=== PATIENT | female | born 1970 | race Caucasian/White ===

== ENCOUNTER → 2019-09-19 15:01 | Outpatient (BNVA) | payer SELFPAY | PROVIDERS: Family Provider Nurse Practitioner Family; PCP Nurse Practitioner Family; Visit Provider Nurse Practitioner Family | DX: J10.1 Influenza due to other identified influenza virus with other respiratory manifestations (principal); R68.89 Other general symptoms and signs | CPT/HCPCS: 87804 ==

== ENCOUNTER 2024-11-10 09:10 | Emergency (ER) | payer BC, SELFPAY ==
[2024-11-10] VITALS (7 sets, daily range): BP systolic 142–182; BP diastolic 86–100; PULSE 82–116; RESP 12–24; TEMP 36.8; O2SAT 90–98; BMI 38.9
--- NOTE | 2024-11-10 09:22 | CT_ITS ---
WS: [id number] CT HEAD NONCONTRAST HISTORY: acute onset GAXIOLA TECHNIQUE: Contiguous axial imaging performed through the brain. Bone and soft tissue windows. Sagittal and coronal reformats reviewed. All CT scans at [facility] use at least one of these dose optimization techniques: automated exposure control; mA and/or kV adjustment per patient size (includes targeted exams where dose is matched to clinical indication); or iterative reconstruction. DLP: 1192.18 mGy.cm COMPARISON: None available. No acute intracranial hemorrhage, midline shift or mass effect. No atrophy or prior infarcts or herniation. Ventricles: Normal size with no hydrocephalus. Paranasal sinuses: Prior functional sinus surgery. No air-fluid levels within the sinuses. Mastoid air cells: Well pneumatized. Calvarium and scalp: Skull is intact with no soft tissue edema or swelling. CT/CT head wo con* [id number] IMPRESSION: Negative head CT.
--- NOTE | 2024-11-10 09:23 | W.ED.HA ---
Documented by User: FAM Rod 11/10/24 12:41 HPI - Headache General: Chief Complaint: Headache Stated Complaint: stroke like symptoms Time Seen by Provider: 11/10/24 09:21 Source: patient Mode of arrival: wheelchair Limitations: no limitations History of Present Illness: Patient is a 54-year-old female presents to ED today for evaluation of a headache. Patient tells me she was upstairs on MedSurg accompanying her ill mother when she unfortunately . Patient then began to grieve the loss of her mother. She states when she knelt to the ground she developed sudden onset severe headache to the back of her head that she describes as an explosion . Patient states she used to suffer from migraines years ago but has not had a headache in several years. She is describing this pain today is severe. She does arrive understandably anxious and tearful. Blood pressure significantly elevated. She states she does take hypertensive medications in the evening and did take these yesterday evening. She states her blood pressure is normally controlled at home. She is not complaining of any visual changes, vomiting, or neurologic deficits. MD elicited complaint: headache Pertinent past history: hypertension Onset (ago): minute(s) Onset description: suddenly Location: occipital Severity: severe Quality & Timing: other ( explosion ) Exacerbating factors: none Relieving factors: nothing Context: other (significant life stressor; just lost her mother) Associated symptoms: Deny chest pain, confusion, fever(s), lightheadedness, malaise, nausea, pre-syncope, syncope or vomiting Treatments prior to arrival: none Related Data Home Medications ?Medication ?Instructions ?Recorded ?Confirmed acetaminophen 500 mg tablet 1,000 mg PO Q6H PRN Pain 11/10/24 11/10/24 (Tylenol Extra Strength) allopurinol 300 mg tablet 300 mg PO DAILY 11/10/24 11/10/24 ascorbic acid (vitamin C) 1,000 mg 1,000 mg PO DAILY 11/10/24 11/10/24 tablet (Vitamin C) cholecalciferol (vitamin D3) 125 125 mcg PO BEDTIME 11/10/24 11/10/24 mcg (5,000 unit) tablet (Vitamin D3) duloxetine 30 mg capsule,delayed 30 mg PO DAILY 11/10/24 11/10/24 release duloxetine 60 mg capsule,delayed 60 mg PO DAILY 11/10/24 11/10/24 release hydrocodone 7.5 mg-acetaminophen 1 tab PO BID PRN Pain 11/10/24 11/10/24 325 mg tablet ibuprofen 200 mg tablet (Advil) 400 mg PO Q6H PRN Pain 11/10/24 11/10/24 naproxen sodium 220 mg tablet 220 mg PO Q12H PRN Pain 11/10/24 11/10/24 (Aleve) nystatin 100,000 unit/gram topical 1 applic topical BID PRN Skin 11/10/24 11/10/24 powder (Nystop) Irritation omeprazole 20 mg capsule,delayed 20 mg PO DAILY 11/10/24 11/10/24 release potassium chloride 10 mEq 10 meq PO DAILY 11/10/24 11/10/24 tablet,extended release 40-iron fum 27 mg 1 cap PO BEDTIME 11/10/24 11/10/24 iron-folic acid 800 mcg-dha 250 mg capsule trazodone 50 mg tablet 50 - 100 mg PO BEDTIME 11/10/24 11/10/24 valsartan 320 1 tab PO DAILY 11/10/24 11/10/24 mg-hydrochlorothiazide 25 mg tablet zinc gluconate 50 mg tablet 50 mg PO DAILY 11/10/24 11/10/24 zolpidem 10 mg tablet 10 mg PO BEDTIME 11/10/24 11/10/24 Allergies Allergy/AdvReac Type Severity Reaction Status Date / Time methylprednisolone (From Allergy Mild Unknown Verified 10/19/19 10:29 Medrol) metoclopramide (From Reglan) Allergy Mild unknown Verified 10/19/19 10:29 morphine Allergy Mild Unknown Verified 10/19/19 10:29 pramipexole (From Mirapex) Allergy Mild Unknown Verified 10/19/19 10:29 prednisone Allergy Mild Unknown Verified 10/19/19 10:29 sumatriptan (From Imitrex) Allergy Mild Unknown Verified 10/19/19 10:29 Review of Systems Const: Denies: fever(s), chills, body aches, fatigue or malaise Eyes: Denies: change in vision, blurry vision, photophobia, floaters or seeing flashes Card: Denies: chest pain, lightheadedness, syncope or pre-syncope Resp: Denies: dyspnea GI: Denies: nausea or vomiting Musc: Reports: neck pain (chronic) and back pain (chronic) Neuro: Reports: headache(s); Denies: numbness in extremities, weakness in extremities, sensory changes, dizziness, confusion, behavioral changes, Slurred speech present, difficulty communicating thoughts or seizure-like activity Physical Exam Const: COMMON NORMALS: patient oriented x3, no limitations, alert and well nourished GENERAL APPEARANCE: cooperative and anxious (just lost her mother) NUTRITIONAL APPEARANCE: obese ORIENTATION/CONSCIOUSNESS: Yes awake, Yes oriented to person, Yes oriented to place and Yes oriented to time HENMT: COMMON NORMALS: normocephalic and atraumatic HEAD & SCALP: normal to inspection, normocephalic and atraumatic FACE & SINUS: normal facial exam and face symmetric Eye: COMMON NORMALS: Equal, round and reactive pupils present and EOMs intact bilaterally GENERAL EYE: appearance normal, both eyes and all related structures and normal light reflex PUPIL: Yes Equal, round and reactive pupils present DIRECT OPHTHALMOSCOPY: Yes normal light reflex Neck/C-Spine: COMMON NORMALS: full ROM and no meningeal signs GENERAL: Yes normal visual inspection Resp: COMMON NORMALS: normal respiratory effort Cardio: COMMON NORMALS: regular rhythm RATE: tachycardic RHYTHM: regular rhythm Neuro: OLIVIA COMA SCALE: document GCS findings Olivia coma scale eye opening: Spontaneous [place] coma scale verbal response: Orientated Olivia coma scale motor response: Obey commands Olivia coma scale total score: 15 COMMON NORMALS: patient oriented x3, CN's II-XII intact bilaterally, moves all extremities, no focal motor deficits and no sensory deficits noted SENSORIUM/ORIENTATION: Yes alert, Yes oriented to person, Yes oriented to place and Yes oriented to time MENINGEAL SIGNS: Yes no meningeal signs Course Vital Signs: Vital signs: Vital Signs Temperature 98.2 F 11/10/24 09:16 Pulse Rate 82 11/10/24 12:42 Respiratory Rate 21 H 11/10/24 09:55 Blood Pressure 142/86 11/10/24 12:42 Pulse Oximetry 98 11/10/24 12:42 Oxygen Delivery Me thod Room Air 11/10/24 09:45 MDM - Headache Medical Decision Making Patient arrived to the emergency department visibly and understandably distraught over the recent passing of her mother. She was significantly hypertensive with a complaint of a sudden onset severe headache. Workup in the emergency department included blood work, noncontrast head CT, as well as CT imaging of her head and neck. She was given IV medications here and on re-examination she is resting comfortably currently rating her headache at a 1/10 and is ready to go home. She will be allowed discharge with return precautions. Medical Records I reviewed the patient's medical records. Lab Data I reviewed the patient's lab results. 11/10/24 09:11/10/24 09:[address] 11/10/24 09:22 IMPRESSION: Negative head CT. Head/Neck CTA 11/10/24 11:16 IMPRESSION: 1. Normal carotid arteries. 2. No occlusions or aneurysms within the [place]. 3. Absent or hypoplastic LEFT posterior communicating artery, normal variant. 4. Diffusely small caliber RIGHT vertebral artery. Laboratory Results WBC 8.60 10^3/uL (3.29-11.43) 11/10/24 09: RBC 4.85 10^6/uL (3.85-5.65) 11/10/24 09: Hgb 13.90 g/dL (11.27-16.99) 11/10/24 09: Hct 41.7 % (36-47) 11/10/24: MCV 86.0 fl (85-98) 11/10/24: MCH 28.7 pg (27-33) 11/10/24: MCHC 33.3 g/dL (30-55) 11/10/24: RDW 14.3 % (12.1-15.1) 11/10/24: Plt Count 283 10^3/cmm (157-399) 11/10/24: MPV 10.4 fL (7.4-10.4) 11/10/24 09: Neut % (Auto) 55.4 % 11/10/24: Lymph % (Auto) 33.8 % 11/10/24 09: [place] % (Auto) 6.3 % 11/10/24: Eos % (Auto) 3.6 % 11/10/24 09:25 Baso % (Auto) 0.7 % 11/10/24: Neut # (Auto) 4.76 10^3/uL (1.8-7.7) 11/10/24 09:25 Lymph # (Auto) 2.9 10^3/uL (0.8-4.8) 11/10/24 09:25 [place] # (Auto) 0.5 10^3/uL (0.2-0.9) 11/10/24 09:25 Eos # (Auto) 0.3 10^3/uL (0.0-0.8) 11/10/24 09:25 Baso # (Auto) 0.1 10^3/uL (0.0-0.1) 11/10/24 09:25 Nucleated RBC % (auto) 0 % 11/10/24: Nucleated RBCs # 0.0 /100WBC 11/10/24 09:25 Sodium 141 mmol/L (136-145) 11/10/24 09:25 Potassium 3.6 mmol/L (3.5-5.1) 11/10/24 09: Chloride 100 mmol/L (98-107) 11/10/24 09: Carbon Dioxide 28 mmol/L (22-29) 11/10/24 09:25 Anion Gap 16.6 (5-19) 11/10/24 09:25 BUN 18 mg/dL (6-20) 11/10/24 09:25 Creatinine 0.8 mg/dL (0.5-0.9) 11/10/24 09:25 GFR Calculation 74.7 mL/min (90-130) L 11/10/24 09:25 Glucose 138 mg/dL (65-115) H 11/10/24 09:25 Calculated Osmolality 296 mOsm/kg (285-295) H 11/10/24 09:25 Calcium 10.0 mg/dL (8.5-10.5) 11/10/24 09:25 Total Bilirubin 0.3 mg/dL (0.15-1.2) 11/10/24 09:25 AST 23 U/L (0-32) 11/10/24 09:25 ALT 24 U/L (0-33) 11/10/24 09:25 Alkaline Phosphatase 101 U/L (35-105) 11/10/24 09:25 Total Protein 7.3 g/dL (6.6-8.7) 11/10/24 09:25 Albumin 4.8 g/dL (3.5-5.2) 11/10/24 09:25 Globulin 2.5 g/dL (1.3-4.6) 11/10/24 09:25 All radiology interpretation(s) finalized by discharge Discharge Plan Discharge Patient Disposition: Home Clinical Impression: Grief reaction Headache Qualifiers: Headache type: unspecified Headache chronicity pattern: acute headache Intractability: not intractable Qualified Code(s): R51.9 - Headache, unspecified Condition: Stable Prescriptions: No Action ascorbic acid (vitamin C) [Vitamin C] 1,000 mg Tablet 1,000 mg PO DAILY trazodone 50 mg tablet 50 - 100 mg PO BEDTIME potassium chloride 10 mEq tablet extended release 10 meq PO DAILY hydrocodone-acetaminophen 7.5-325 mg tablet 1 tab PO BID PRN (Reason: Pain) omeprazole 20 mg capsule,delayed release(DR/EC) 20 mg PO DAILY zinc gluconate 50 mg Tablet 50 mg PO DAILY allopurinol 300 mg tablet 300 mg PO DAILY nystatin [Nystop] 100,000 unit/gram powder 1 applic TOPICAL BID PRN (Reason: Skin Irritation) zolpidem 10 mg tablet 10 mg PO BEDTIME duloxetine 30 mg capsule,delayed release(DR/EC) 30 mg PO DAILY duloxetine 60 mg capsule,delayed release(DR/EC) 60 mg PO DAILY valsartan-hydrochlorothiazide 320-25 mg tablet 1 tab PO DAILY cholecalciferol (vitamin D3) [Vitamin D3] 125 mcg (5,000 unit) Tablet 125 mcg PO BEDTIME Multi-DHA 27mg iron- 800 mcg-250 mg Capsule 1 cap PO BEDTIME acetaminophen [Tylenol Extra Strength] 500 mg Tablet 1,000 mg PO Q6H PRN (Reason: Pain) naproxen sodium [Aleve] 220 mg Tablet 220 mg PO Q12H PRN (Reason: Pain) ibuprofen [Advil] 200 mg Tablet 400 mg PO Q6H PRN (Reason: Pain) Discharge Orders: Discharge ED (Routine); Ordered 11/10/24 Ordered By: Samia Cohen Activity Restrictions/Additional Instructions: I offer my condolences to you and your family regarding the passing of your mother. As we discussed, your CT head as well as CTA imaging of your head/neck were unremarkable here today. You will be allowed discharge from the emergency department to go home and rest and be with your loved ones during this time of sorrow. 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[employer] Room for Carinarussell Maradiaga Documented by User: Saeid Capone DO 11/10/24 13:00 HPI - Headache General: Chief Complaint: Headache Stated Complaint: stroke like symptoms Time Seen by Provider: 11/10/24 09:21 Related Data Home Medications ?Medication ?Instructions ?Recorded ?Confirmed acetaminophen 500 mg tablet 1,000 mg PO Q6H PRN Pain 11/10/24 11/10/24 (Tylenol Extra Strength) allopurinol 300 mg tablet 300 mg PO DAILY 11/10/24 11/10/24 ascorbic acid (vitamin C) 1,000 mg 1,000 mg PO DAILY 11/10/24 11/10/24 tablet (Vitamin C) cholecalciferol (vitamin D3) 125 125 mcg PO BEDTIME 11/10/24 11/10/24 mcg (5,000 unit) tablet (Vitamin D3) duloxetine 30 mg capsule,delayed 30 mg PO DAILY 11/10/24 11/10/24 release duloxetine 60 mg capsule,delayed 60 mg PO DAILY 11/10/24 11/10/24 release hydrocodone 7.5 mg-acetaminophen 1 tab PO BID PRN Pain 11/10/24 11/10/24 325 mg tablet ibuprofen 200 mg tablet (Advil) 400 mg PO Q6H PRN Pain 11/10/24 11/10/24 naproxen sodium 220 mg tablet 220 mg PO Q12H PRN Pain 11/10/24 11/10/24 (Aleve) nystatin 100,000 unit/gram topical 1 applic topical BID PRN Skin 11/10/24 11/10/24 powder (Nystop) Irritation omeprazole 20 mg capsule,delayed 20 mg PO DAILY 11/10/24 11/10/24 release potassium chloride 10 mEq 10 meq PO DAILY 11/10/24 11/10/24 tablet,extended release 40-iron fum 27 mg 1 cap PO BEDTIME 11/10/24 11/10/24 iron-folic acid 800 mcg-dha 250 mg capsule trazodone 50 mg tablet 50 - 100 mg PO BEDTIME 11/10/24 11/10/24 valsartan 320 1 tab PO DAILY 11/10/24 11/10/24 mg-hydrochlorothiazide 25 mg tablet zinc gluconate 50 mg tablet 50 mg PO DAILY 11/10/24 11/10/24 zolpidem 10 mg tablet 10 mg PO BEDTIME 11/10/24 11/10/24 Allergies Allergy/AdvReac Type Severity Reaction Status Date / Time methylprednisolone (From Allergy Mild Unknown Verified 10/19/19 10:29 Medrol) metoclopramide (From Reglan) Allergy Mild unknown Verified 10/19/19 10:29 morphine Allergy Mild Unknown Verified 10/19/19 10:29 pramipexole (From Mirapex) Allergy Mild Unknown Verified 10/19/19 10:29 prednisone Allergy Mild Unknown Verified 10/19/19 10:29 sumatriptan (From Imitrex) Allergy Mild Unknown Verified 10/19/19 10:29 Physical Exam Neuro: OLIVIA COMA SCALE: document GCS findings Olivia coma scale total score: 15 Course Vital Signs: Vital signs: Vital Signs Temperature 98.2 F 11/10/24 09:16 Pulse Rate 82 11/10/24 12:42 Respiratory Rate 21 H 11/10/24 09:55 Blood Pressure 142/86 11/10/24 12:42 Pulse Oximetry 98 11/10/24 12:42 Oxygen Delivery Me thod Room Air 11/10/24 09:45 MDM - Headache Medical Decision Making Patient arrived to the emergency department visibly and understandably distraught over the recent passing of her mother. She was significantly hypertensive with a complaint of a sudden onset severe headache. Workup in the emergency department included blood work, noncontrast head CT, as well as CT imaging of her head and neck. She was given IV medications here and on re-examination she is resting comfortably currently rating her headache at a 1/10 and is ready to go home. She will be allowed discharge with return precautions. Chart reviewed and patient discussed with midlevel. Agree with assessment and plan. Lab Data 11/10/24 09:25 11/10/24 09:[address] 11/10/24 09:22 IMPRESSION: Negative head CT. Head/Neck CTA 11/10/24 11:16 IMPRESSION: 1. Normal carotid arteries. 2. No occlusions or aneurysms within the [place]. 3. Absent or hypoplastic LEFT posterior communicating artery, normal variant. 4. Diffusely small caliber RIGHT vertebral artery. Laboratory Results WBC 8.60 10^3/uL (3.29-11.43) 11/10/24 09: RBC 4.85 10^6/uL (3.85-5.65) 11/10/24 09:25 Hgb 13.90 g/dL (11.27-16.99) 11/10/24: Hct 41.7 % (36-47) 11/10/24: MCV 86.0 fl (85-98) 11/10/24: MCH 28.7 pg (27-33) 11/10/24: MCHC 33.3 g/dL (30-55) 11/10/24: RDW 14.3 % (12.1-15.1) 11/10/24 09: Plt Count 283 10^3/cmm (157-399) 11/10/24: MPV 10.4 fL (7.4-10.4) 11/10/24 09: Neut % (Auto) 55.4 % 11/10/24 09: Lymph % (Auto) 33.8 % 11/10/24 09:25 [place] % (Auto) 6.3 % 11/10/24 09:25 Eos % (Auto) 3.6 % 11/10/24 09:25 Baso % (Auto) 0.7 % 11/10/24: Neut # (Auto) 4.76 10^3/uL (1.8-7.7) 11/10/24 09: Lymph # (Auto) 2.9 10^3/uL (0.8-4.8) 11/10/24 09:25 [place] # (Auto) 0.5 10^3/uL (0.2-0.9) 11/10/24 09:25 Eos # (Auto) 0.3 10^3/uL (0.0-0.8) 11/10/24 09:25 Baso # (Auto) 0.1 10^3/uL (0.0-0.1) 11/10/24 09:25 Nucleated RBC % (auto) 0 % 11/10/24 09:25 Nucleated RBCs # 0.0 /100WBC 11/10/24 09:25 Sodium 141 mmol/L (136-145) 11/10/24 09:25 Potassium 3.6 mmol/L (3.5-5.1) 11/10/24 09:25 Chloride 100 mmol/L (98-107) 11/10/24 09:25 Carbon Dioxide 28 mmol/L (22-29) 11/10/24 09:25 Anion Gap 16.6 (5-19) 11/10/24 09:25 BUN 18 mg/dL (6-20) 11/10/24 09:25 Creatinine 0.8 mg/dL (0.5-0.9) 11/10/24 09:25 GFR Calculation 74.7 mL/min (90-130) L 11/10/24 09:25 Glucose 138 mg/dL (65-115) H 11/10/24 09:25 Calculated Osmolality 296 mOsm/kg (285-295) H 11/10/24 09:25 Calcium 10.0 mg/dL (8.5-10.5) 11/10/24 09:25 Total Bilirubin 0.3 mg/dL (0.15-1.2) 11/10/24 09:25 AST 23 U/L (0-32) 11/10/24 09:25 ALT 24 U/L (0-33) 11/10/24 09:25 Alkaline Phosphatase 101 U/L (35-105) 11/10/24 09:25 Total Protein 7.3 g/dL (6.6-8.7) 11/10/24 09:25 Albumin 4.8 g/dL (3.5-5.2) 11/10/24 09:25 Globulin 2.5 g/dL (1.3-4.6) 11/10/24 09:25 Discharge Plan Discharge Patient Disposition: Home Clinical Impression: Grief reaction Headache Qualifiers: Headache type: unspecified Headache chronicity pattern: acute headache Intractability: not intractable Qualified Code(s): R51.9 - Headache, unspecified Condition: Stable Prescriptions: No Action ascorbic acid (vitamin C) [Vitamin C] 1,000 mg Tablet 1,000 mg PO DAILY trazodone 50 mg tablet 50 - 100 mg PO BEDTIME potassium chloride 10 mEq tablet extended release 10 meq PO DAILY hydrocodone-acetaminophen 7.5-325 mg tablet 1 tab PO BID PRN (Reason: Pain) omeprazole 20 mg capsule,delayed release(DR/EC) 20 mg PO DAILY zinc gluconate 50 mg Tablet 50 mg PO DAILY allopurinol 300 mg tablet 300 mg PO DAILY nystatin [Nystop] 100,000 unit/gram powder 1 applic TOPICAL BID PRN (Reason: Skin Irritation) zolpidem 10 mg tablet 10 mg PO BEDTIME duloxetine 30 mg capsule,delayed release(DR/EC) 30 mg PO DAILY duloxetine 60 mg capsule,delayed release(DR/EC) 60 mg PO DAILY valsartan-hydrochlorothiazide 320-25 mg tablet 1 tab PO DAILY cholecalciferol (vitamin D3) [Vitamin D3] 125 mcg (5,000 unit) Tablet 125 mcg PO BEDTIME Multi-DHA 27mg iron- 800 mcg-250 mg Capsule 1 cap PO BEDTIME acetaminophen [Tylenol Extra Strength] 500 mg Tablet 1,000 mg PO Q6H PRN (Reason: Pain) naproxen sodium [Aleve] 220 mg Tablet 220 mg PO Q12H PRN (Reason: Pain) ibuprofen [Advil] 200 mg Tablet 400 mg PO Q6H PRN (Reason: Pain) Discharge Orders: Discharge ED (Routine); Ordered 11/10/24 Ordered By: Samia Cohen Activity Restrictions/Additional Instructions: I offer my condolences to you and your family regarding the passing of your mother. As we discussed, your CT head as well as CTA imaging of your head/neck were unremarkable here today. You will be allowed discharge from the emergency department to go home and rest and be with your loved ones during this time of sorrow. 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[employer] Room for Ludivina Maradiaga
[2024-11-10] MEDS: LORazepam 2 mg/mL INJ 1 mL 1 MG IVP (09:29)
[2024-11-10 09:32] LABS: Basophils # 0.1 10^3/uL (0.0-0.1); Basophils % 0.7 %; Eosinophils # 0.3 10^3/uL (0.0-0.8); Eosinophils % 3.6 %; Hematocrit 41.7 % (36-47); Lymphocytes # 2.9 10^3/uL (0.8-4.8); Lymphocytes % 33.8 %; Mean Corpuscular HGB Conc 33.3 g/dL (30-55); Mean Corpuscular Hemoglobin 28.7 pg (27-33); Mean Platelet Volume 10.4 fL (7.4-10.4); Monocytes # 0.5 10^3/uL (0.2-0.9); Monocytes % 6.3 %; Neutrophils # 4.76 10^3/uL (1.8-7.7); Neutrophils % 55.4 %; Nucleated Red Blood Cells % 0 %; Platelet Count 283 10^3/cmm (157-399); Red Blood Count 4.85 10^6/uL (3.85-5.65); Red Cell Distribution Width 14.3 % (12.1-15.1)
[2024-11-10 09:49] LABS: Alanine Aminotransferase 24 U/L (0-33); Albumin Level 4.8 g/dL (3.5-5.2); Alkaline Phosphatase 101 U/L (35-105); Anion Gap 16.6 (5-19); Aspartate Amino Transferase 23 U/L (0-32); Blood Urea Nitrogen 18 mg/dL (6-20); Carbon Dioxide 28 mmol/L (22-29); Chloride 100 mmol/L (98-107); Creatinine Clr Calc Pharmacy 90.5577; Globulin 2.5 g/dL (1.3-4.6); Glomerular Filtration Rate 74.7 mL/min (90-130); Glucose 138 mg/dL (65-115); Osmolality Calculated 296 mOsm/kg (285-295); Potassium 3.6 mmol/L (3.5-5.1); Sodium 141 mmol/L (136-145); Total Bilirubin 0.3 mg/dL (0.15-1.2); Total Protein 7.3 g/dL (6.6-8.7)
[2024-11-10] MEDS: ketorolac 30 mg/mL INJ 15 MG IVP (10:33)
[2024-11-10] MEDS: acetaminophen 1,000 MG/100 ML PIGGYBACK 400 MG IV (10:33)
--- NOTE | 2024-11-10 11:16 | CT_ITS ---
WS: [id number] CT ANGIOGRAM CEREBRAL AND CAROTID ARTERIES HISTORY: severe onset GAXIOLA TECHNIQUE: CT angiogram is performed of the carotid and cerebral arteries. During arterial injection imaging is obtained from the skull vertex to the aortic arch in 1.25 mm imaging. Coronal and sagittal reformats are submitted. Additional multi planar reformats of the carotid and cerebral arteries are submitted, MIP imaging also reviewed. NASCET criteria utilized. All CT scans at [facility] use at least one of these dose optimization techniques: automated exposure control; mA and/or kV adjustment per patient size (includes targeted exams where dose is matched to clinical indication); or iterative reconstruction. CONTRAST: Omnipaque 350; 100 mL IV. DLP: 496.16 mGy.cm COMPARISON: Noncontrast CT head 11/10/2024 Carotid Angiogram: Right carotid: Common carotid artery: Arises normally from the innominate artery. No significant plaque or stenosis. Internal carotid artery: No plaque or stenosis. External carotid artery: Patent. Left carotid: Common carotid artery: Arises normally from the aorta. No significant plaque or stenosis. Internal carotid artery: No plaque or stenosis. External carotid artery: Patent. Right vertebral artery: Very small caliber RIGHT vertebral artery is intact. Left vertebral artery: Dominant LEFT vertebral artery Subclavian arteries: No stenosis or significant abnormality. Upper thorax: Normal. Thyroid gland: Normal. Osseous structures: Anterior cervical fusion C5-C7. Interbody disc spacers at C5-6 and C6-7. CEREBRAL ANGIOGRAM: Intracranial vertebral arteries: Small caliber distal RIGHT vertebral artery but it is patent. Normal size LEFT vertebral artery. Basilar artery: No significant stenosis or occlusion. No aneurysm. Intracranial Internal carotid arteries: Demonstrates no significant stenosis or plaque. Middle cerebral arteries: Normal. Anterior cerebral arteries and ACOM: Normal. Posterior cerebral arteries and PCOM's: Posterior cerebral arteries are well identified and normal size. Absent or hypoplastic LEFT posterior communicating artery. Normal RIGHT posterior communicating artery. Dural venous sinuses are normally enhancing. CT/CT angio headneck* [id number] IMPRESSION: 1. Normal carotid arteries. 2. No occlusions or aneurysms within the [place]. 3. Absent or hypoplastic LEFT posterior communicating artery, normal variant. 4. Diffusely small caliber RIGHT vertebral artery.
[2024-11-10] MEDS: diphenhydrAMINE 50 mg/mL SDV 1mL 25 MG IVP (11:23)
[2024-11-10] MEDS: iohexol 350 mg/mL 500 mL Btl (per mL) IV (11:49)
== END 2024-11-10 12:47 | disposition home or self-care (01) ==
PROVIDERS: Emergency Provider Physician Assistant
DX: F43.20 Adjustment disorder, unspecified (principal); R51.9 Headache, unspecified
CPT/HCPCS: 36415; 70450; 70496; 70498; 80053; 85025; 96365; 96375; 99285; J0131; J1200; J1885; J2060